=== PATIENT | male | born 1970 | race African-American/Black ===

== ENCOUNTER 2022-03-18 14:27 | Inpatient (IN) | payer OTHER, SELFPAY ==
[~2022-03-18 14:27] MED LIST: Iopamidol-370 76% 500 ML 1 ML ONE
[2022-03-18 14:55] LABS: #Eosinphils 0.3 thou/uL (0.0-0.7); #Lymphocytes 2.6 thou/uL (1.20-3.40); #Monocytes 0.7 thou/uL (0.11-0.59); #Neutrophils 11.6 thou/uL (1.40-6.50); %Basophils 0.3 % (0.0-1.0); %Eosinophils 1.7 % (0.0-10.0); %Lymphocytes 17.3 % (21.0-51.0); %Monocytes 4.5 % (0.0-10.0); %Neutrophils 76.2 % (42.0-75.0); Hemoglobin 14.5 g/dL (14.0-18.0); Mean Corpuscular HGB CONC 34.7 g/dL (32.0-36.0); Mean Corpuscular Hemoglobin 30.7 pg (27.0-31.0); Mean Corpuscular Volume 88.5 fL (78.0-98.0); Mean Platelet Volume 9.3 fL (7.4-10.4); Platelet Count 177 thou/uL (130-400); RBC Distribution Width 11.8 % (11.5-14.5); Red Blood Cell (RBC) Count 4.74 mill/uL (4.70-6.10); White Blood Cell (WBC) Count 15.2 thou/uL (4.8-10.8)
[2022-03-18 15:10] LABS: PTT 25.8 sec (22.9-36.1); Prothrombin Time 13.7 sec (12.0-14.7)
[2022-03-18 15:18] LABS: ALT (SGPT) 188 U/L (8-55); AST (SGOT) 184 U/L (5-34); Albumin 4.2 g/dL (3.5-5.0); Alcohol Less than 10 mg/dL (Less than 10); Alkaline Phosphatase 77 U/L (40-110); Anion Gap 16 mmol/L (10-20); BUN (Urea Nitrogen) 14 mg/dL (8.4-25.7); Bilirubin, Total 1.5 mg/dL (0.2-1.2); Calc. Creatinine Clearance 0 mL/min (70-130); Calcium 8.6 mg/dL (7.8-10.44); Carbon Dioxide 20 mmol/L (22-29); Chloride 108 mmol/L (98-107); Estimated GFR 65; Glucose 134 mg/dL (70-105); Lipase 24 U/L (8-78); Potassium 3.2 mmol/L (3.5-5.1); Protein, Total 7.2 g/dL (6.0-8.3); Sodium 141 mmol/L (136-145)
[2022-03-18] MEDS ORDERED: Ondansetron PF 4 MG/2 ML Vial IVP PRN (15:33)
[2022-03-18] MEDS ORDERED: Dextrose 5% in Water 1,000 ML IV PRN (15:33)
[2022-03-18] MEDS ORDERED: Promethazine HCl 25 MG/ML VIAL IM PRN (15:33)
[2022-03-18] MEDS ORDERED: Dextrose 50% Abboject 50 ML SYRINGE SLOW IVP PRN (15:33)
[2022-03-18] MEDS ORDERED: Ondansetron ODT 4 MG TAB PO PRN (15:33)
[2022-03-18] MEDS ORDERED: traMADol HCl 50 MG TAB PO PRN (15:43)
[2022-03-18] MEDS ORDERED: Sodium Chloride 0.9% 1,000 ML IV SCH (15:45)
[2022-03-18] MEDS ORDERED: Acetaminophen 500 MG TAB PO SCH (15:45)
[2022-03-18] MEDS ORDERED: Morphine 4 MG/ML VIAL ONE (15:48)
[2022-03-18] MEDS ORDERED: Cyclobenzaprine 10 MG TAB PO PRN (15:57)
[2022-03-18 16:06] LABS: Bacteria/HPF None Seen HPF (None Seen); Bilirubin Negative (Negative); Blood, Urine 2+ (Negative); Clarity Clear (Clear); Glucose, Urine (Dipstick) Normal (Negative); Ketone, Urine Negative (Negative); Leukocyte Negative Leu/uL (Negative); Nitrite Negative (Negative); Protein, Urine (Dipstick) 20 mg/dL (Neg-Trace); RBC/HPF 0-3 HPF (0-3); Specific Gravity, Urine 1.029 (1.002-1.036); Squamous Epithelial 0-3 HPF (0-3); Urobilinogen Normal mg/dL (Less than 2); WBC/HPF 0-3 HPF (0-3)
[2022-03-18 16:13] LABS: Magnesium 1.8 mg/dL (1.6-2.6); Phosphorus 2.8 mg/dL (2.3-4.7)
[2022-03-18] MEDS ORDERED: Lidocaine 1% MPF 2 ML VIAL ONE (18:11)
[2022-03-18] MEDS ORDERED: Morphine 4 MG/ML VIAL SLOW IVP PRN (18:56)
[2022-03-18 19:17] LABS: Amphetamine Not Detected (NotDetected); Barbiturates Screen Not Detected (NotDetected); Benzodiazepine Screen Not Detected (NotDetected); Cocaine Metabolite Screen Not Detected (NotDetected); Methadone Not Detected (NotDetected); Methamphetamine Not Detected (NotDetected); Opiate Screen Detected (NotDetected); Oxycodone Screen Not Detected (NotDetected); Phencyclidine (PCP) Not Detected (NotDetected); THC/Cannabinoid Screen Not Detected (NotDetected); Tricyclic Screen Not Detected (NotDetected)
[2022-03-18 20:27] VITALS: BMI 32.7
[2022-03-18] MEDS: Gabapentin 300 MG CAP PO SCH (20:30)
[2022-03-18] MEDS: Famotidine 20 MG TAB PO SCH (20:30)
[2022-03-18] MEDS: Acetaminophen 500 MG TAB PO SCH ×2 (20:38→23:02)
[2022-03-18] MEDS: traMADol HCl 50 MG TAB PO SCH ×2 (20:38→23:03)
[2022-03-18] MEDS: Senokot S 8.6-50 MG TAB PO SCH (21:33)
[2022-03-19 03:39] LABS: SARS-CoV-2 NAA Rapid Test Not Detected (NotDetected)
[2022-03-19] MEDS: hydrALAZINE 20 MG/ML VIAL SLOW IVP PRN ×2 (04:00→08:17)
[2022-03-19] MEDS: traMADol HCl 50 MG TAB PO SCH ×4 (04:01→20:47)
[2022-03-19 05:35] LABS: #Lymphocytes 1.5 thou/uL (1.20-3.40); #Neutrophils 8.4 thou/uL (1.40-6.50); %Eosinophils 0.2 % (0.0-10.0); %Lymphocytes 13.7 % (21.0-51.0); %Monocytes 8.8 % (0.0-10.0); %Neutrophils 77.3 % (42.0-75.0); Hemoglobin 12.9 g/dL (14.0-18.0); Mean Corpuscular Hemoglobin 31.8 pg (27.0-31.0); Mean Corpuscular Volume 88.4 fL (78.0-98.0); Mean Platelet Volume 9.1 fL (7.4-10.4); Platelet Count 164 thou/uL (130-400); RBC Distribution Width 11.7 % (11.5-14.5); Red Blood Cell (RBC) Count 4.06 mill/uL (4.70-6.10); White Blood Cell (WBC) Count 10.9 thou/uL (4.8-10.8)
[2022-03-19] MEDS: Acetaminophen 500 MG TAB PO SCH ×4 (05:35→23:52)
[2022-03-19 06:30] LABS: Anion Gap 14 mmol/L (10-20); BUN (Urea Nitrogen) 13 mg/dL (8.4-25.7); Calc. Creatinine Clearance 163 mL/min (70-130); Calcium 8.4 mg/dL (7.8-10.44); Carbon Dioxide 23 mmol/L (22-29); Chloride 105 mmol/L (98-107); Estimated GFR 95; Glucose 140 mg/dL (70-105); Magnesium 1.8 mg/dL (1.6-2.6); Phosphorus 2.2 mg/dL (2.3-4.7); Potassium 3.3 mmol/L (3.5-5.1); Sodium 139 mmol/L (136-145)
[2022-03-19] MEDS: Gabapentin 300 MG CAP PO SCH ×3 (08:16→20:46)
[2022-03-19] MEDS: Polyethylene Glycol 3350 17 GM Packet PO SCH (08:16)
[2022-03-19] MEDS: Senokot S 8.6-50 MG TAB PO SCH ×2 (08:16→20:46)
[2022-03-19] MEDS: Famotidine 20 MG TAB PO SCH ×2 (08:16→20:47)
[2022-03-19] MEDS ORDERED: Potassium Phosphate 30 MMOL in Sodium Chloride 0.9% 250 ML 250 ML IVPB SCH (08:30)
[2022-03-19] MEDS ORDERED: Magnesium 2 GM/50 ML(in water) 2 GM in Premix Bag 1 BAG IVPB SCH (08:30)
[2022-03-19] MEDS: Amlodipine 10 MG TAB PO SCH (09:29)
[2022-03-19] MEDS: Hydrochlorothiazide 25 MG TAB PO SCH (09:35)
[2022-03-20] MEDS: Acetaminophen 500 MG TAB PO SCH ×2 (05:15→12:08)
[2022-03-20] MEDS: traMADol HCl 50 MG TAB PO SCH ×3 (05:15→15:10)
[2022-03-20 06:27] LABS: #Eosinphils 0.1 thou/uL (0.0-0.7); #Lymphocytes 1.8 thou/uL (1.20-3.40); #Monocytes 0.9 thou/uL (0.11-0.59); #Neutrophils 6.5 thou/uL (1.40-6.50); %Eosinophils 1.1 % (0.0-10.0); %Lymphocytes 19.2 % (21.0-51.0); %Monocytes 9.9 % (0.0-10.0); %Neutrophils 69.8 % (42.0-75.0); Hemoglobin 12.3 g/dL (14.0-18.0); Mean Corpuscular HGB CONC 34.8 g/dL (32.0-36.0); Mean Corpuscular Hemoglobin 30.5 pg (27.0-31.0); Mean Corpuscular Volume 87.7 fL (78.0-98.0); Mean Platelet Volume 9.2 fL (7.4-10.4); Platelet Count 157 thou/uL (130-400); RBC Distribution Width 11.7 % (11.5-14.5); Red Blood Cell (RBC) Count 4.03 mill/uL (4.70-6.10); White Blood Cell (WBC) Count 9.3 thou/uL (4.8-10.8)
[2022-03-20 06:47] LABS: Anion Gap 12 mmol/L (10-20); BUN (Urea Nitrogen) 13 mg/dL (8.4-25.7); Calc. Creatinine Clearance 155 mL/min (70-130); Calcium 8.8 mg/dL (7.8-10.44); Carbon Dioxide 30 mmol/L (22-29); Chloride 100 mmol/L (98-107); Estimated GFR 89; Glucose 118 mg/dL (70-105); Magnesium 2.2 mg/dL (1.6-2.6); Phosphorus 2.6 mg/dL (2.3-4.7); Potassium 3.1 mmol/L (3.5-5.1); Sodium 139 mmol/L (136-145)
[2022-03-20] MEDS ORDERED: Potassium Chloride 20 MEQ in Premix Bag 1 BAG IVPB SCH (08:00)
[2022-03-20] MEDS ORDERED: Potassium Chloride 20 MEQ TAB PO SCH (08:00)
[2022-03-20] MEDS: Polyethylene Glycol 3350 17 GM Packet PO SCH (09:09)
[2022-03-20] MEDS: Hydrochlorothiazide 25 MG TAB PO SCH (09:09)
[2022-03-20] MEDS: Gabapentin 300 MG CAP PO SCH ×2 (09:09→15:09)
[2022-03-20] MEDS: Amlodipine 10 MG TAB PO SCH (09:11)
[2022-03-20] MEDS: Senokot S 8.6-50 MG TAB PO SCH (09:11)
[2022-03-20 13:26] VITALS: BP 140/72; TEMP 98.5
== END 2022-03-20 15:45 | disposition home or self-care (01) | DRG 86 ==
LOC: ERS 14:27 → SURG B 15:29 → OBSVTOIN 03-19 16:49
PROVIDERS: ADMIT Surgery; ATTEND Surgery
PROC: 0HQEXZZ Repair Left Lower Arm Skin, External Approach (ICD-10-PCS; principal; 2022-03-19)
DX: S06.300A Unspecified focal traumatic brain injury without loss of consciousness, initial encounter (principal); N17.9 Acute kidney failure, unspecified; S22.41XA Multiple fractures of ribs, right side, initial encounter for closed fracture; R40.2412 Glasgow coma scale score 13-15, at arrival to emergency department; I10 Essential (primary) hypertension; Z20.822 Contact with and (suspected) exposure to COVID-19; S40.812A Abrasion of left upper arm, initial encounter; D32.0 Benign neoplasm of cerebral meninges; S51.012A Laceration without foreign body of left elbow, initial encounter; V69.49XA Driver of heavy transport vehicle injured in collision with other motor vehicles in traffic accident, initial encounter; Z79.899 Other long term (current) drug therapy
CPT/HCPCS: 12004; 36415; 70450; 71045; 71260; 72125; 74177; 80048; 80053; 80306; 80307; 81003; 81015; 83690; 83735; 84100; 85025; 85610; 85730; 94760; 96365; 96366; 96367; 96374; 96375; 96376; G0378; G0390; J0360; J2270; J3475; J3480; J7050; Q0162; Q9967; U0002

== ENCOUNTER 2022-04-03 09:59 | Outpatient (CLI) | payer OTHER | END 2022-04-03 10:00 | disposition home or self-care (01) | LOC: BICRAD 09:59 | PROVIDERS: ATTEND Surgery | DX: V87.7XXA Person injured in collision between other specified motor vehicles (traffic), initial encounter (principal); S22.41XA Multiple fractures of ribs, right side, initial encounter for closed fracture; J90 Pleural effusion, not elsewhere classified; J98.4 Other disorders of lung | CPT/HCPCS: 71046 ==